=== PATIENT | male | born 1980 | race Caucasian/White ===

== ENCOUNTER 2024-11-03 12:40 | Emergency (ER) | payer OTHER ==
[~2024-11-03] VITALS: Ht 172.7 cm; Wt 70.0 kg
[2024-11-03 12:43] VITALS: O2SAT 100
[2024-11-03 13:42] VITALS: TEMP 36.7; O2SAT 100
[2024-11-03] MEDS: TETANUS, DIPHTHERIA, PERTUSSIS VAC/PF 0.5ML (>10YR OLD) IM ONE (14:23)
[2024-11-03 14:24] VITALS: BP 146/89; PULSE 86; RESP 16
[2024-11-03] MEDS: KETOROLAC 30MG/ML VIAL IM ONE (14:24)
[2024-11-03] MEDS: BACITRACIN 14GM TUBE TOP ONE (14:25)
== END 2024-11-03 14:47 | disposition home or self-care (01) ==
LOC: ER 13:00
DX: S00.81XA Abrasion of other part of head, initial encounter (principal); S20.219A Contusion of unspecified front wall of thorax, initial encounter; W19.XXXA Unspecified fall, initial encounter; Z02.89 Encounter for other administrative examinations; Z65.3 Problems related to other legal circumstances; X58.XXXA Exposure to other specified factors, initial encounter; Y93.89 Activity, other specified; Y92.89 Other specified places as the place of occurrence of the external cause; Y99.8 Other external cause status
CPT/HCPCS: 99284; 71045; 73502; 73562; 90715; 90471; 96372; J1885; 99285